=== PATIENT | female | born 1990 | race Hispanic/Latino ===

== ENCOUNTER 2020-06-08 01:49 | Emergency (ER) | payer SELFPAY ==
[2020-06-08 02:26] LABS: #Eosinphils 0.1 thou/uL (0.0-0.7); #Lymphocytes 2.1 thou/uL (1.20-3.40); #Monocytes 0.3 thou/uL (0.11-0.59); #Neutrophils 5.5 thou/uL (1.40-6.50); %Basophils 0.3 % (0.0-1.0); %Eosinophils 0.8 % (0.0-10.0); %Lymphocytes 26.2 % (21.0-51.0); %Monocytes 4.2 % (0.0-10.0); %Neutrophils 68.5 % (42.0-75.0); Hemoglobin 10.6 g/dL (12.0-16.0); Mean Corpuscular HGB CONC 33.6 g/dL (32.0-36.0); Mean Corpuscular Hemoglobin 29.5 pg (27.0-31.0); Mean Corpuscular Volume 87.9 fL (78.0-98.0); Mean Platelet Volume 8.4 fL (7.4-10.4); Platelet Count 200 thou/uL (130-400); RBC Distribution Width 12.2 % (11.5-14.5); Red Blood Cell (RBC) Count 3.59 mill/uL (4.20-5.40)
[2020-06-08] MEDS ORDERED: Misoprostol 200 MCG TAB PO SCH (05:00)
--- NOTE | 2020-06-08 08:10 | ULT ---
PRELIMINARY REPORT/[facility]/EMERGENCY AFTER HOURS PROCEDURE: EXAM: US Obstetrical, Complete <14 weeks CLINICAL HISTORY: Sharp pelvic pain, heavy vaginal bleeding, positive TECHNIQUE: Transabdominal imaging of the maternal pelvis and a <14 week gestation with image document ation. COMPARISON: None provided. FINDINGS: GESTATION: No evidence for intrauterine gestation UTERUS: Unremarkable. No myometrial mass. Measures 11.7 x 5.5 x 5.8 cm. The endometrium is thickene d at 17.4 mm and demonstrates heterogeneity with complex debris noted in the lower uterine segment extending into the vaginal canal. CERVIX: Closed. Unremarkable. OVARIES: Unremarkable. No mass. The RIGHT side measures 3.7 x 1.6 x 3.0 cm and the LEFT side measure s 2.5 x 1.4 x 1.3 cm. FREE FLUID: No free fluid. IMPRESSION:No evidence for intra-or extrauterine gestation. Thickened heterogeneous endometrium is n oted with complex debris in the lower uterine segment extending into the vaginal canal suggesting an in progress. ELECTRONICALLY SIGNED BY: Tavon Casey MD Jun 08, 2020 3:41:48 AM CDT FINAL REPORT: TRANSABDOMINAL PELVIC ULTRASOUND WITH BELL SCALE, COLOR FLOW, AND SPECTRAL DOPPLER IMAGING: I agree with the preliminary report given by Dr. Tavon Casey of [facility]. Transcribed Date/Time: 06/08/2020 9:08 AM
== END 2020-06-08 05:05 | disposition home or self-care (01) ==
LOC: ERS 01:49
DX: O03.4 Incomplete spontaneous abortion without complication (principal)
CPT/HCPCS: 36415; 76856; 84702; 85025; 93976